=== PATIENT | male | born 1960 | race Caucasian/White ===

== ENCOUNTER 2019-12-15 07:24 | Outpatient (CLI) | payer OTHER ==
--- NOTE | 2019-12-15 08:19 | ULT ---
ULTRASOUND ABDOMEN: HISTORY: Elevated liver enzymes, polycythemia vera FINDINGS: The liver, gallbladder, pancreas, kidneys and visualized portions of the pancreas, aorta and IVC appe ar normal. The common duct measures 2mm in diameter. No free fluid is seen. The spleen is enlarged measuring 14.5 cm. IMPRESSION: Splenomegaly.
== END 2019-12-15 07:25 | disposition home or self-care (01) ==
LOC: SCSULT 07:24
DX: D45 Polycythemia vera (principal); R16.1 Splenomegaly, not elsewhere classified
CPT/HCPCS: 93975